=== PATIENT | male | born 1995 | race Two or more races ===

== ENCOUNTER 2022-08-05 08:52 | Emergency (ER) | payer SELFPAY ==
--- NOTE | ~2022-08-05 | XR_ITS ---
EXAMINATION: XR abdomen/kub 1V DATE: 08/05/2022 12:22 INDICATION: Abdominal pain. Bloating. Diarrhea. TECHNIQUE: A supine view of the abdomen on 2 radiographs was obtained. COMPARISON: None. FINDINGS: There are no dilated loops of bowel. There is a moderate amount of stool in the colon. IMPRESSION: 1. Nonobstructive bowel gas pattern. Reviewed, dictated and finalized at location A. [employer]
[2022-08-05 09:10] VITALS: BP 140/89; PULSE 80; RESP 15; TEMP 36.9; O2SAT 100
[2022-08-05 10:51] LABS: Basophils Percent Auto 0.4 % (0.2-1.2); Eosinophils Absolute Auto 0.1 K/mm3 (0-0.3); Eosinophils Percent Auto 1.6 % (0-4.4); Hematocrit 40.4 % (42.0-52.0); Hemoglobin 13.9 g/dL (14.0-18.0); Immature Granulocyte Absolute 0.01 K/mm3 (0.00-0.031); Immature Granulocyte Percent A 0.1 % (0-0.5); Lymphocytes Absolute Auto 2.17 K/mm3 (0.9-3.2); Lymphocytes Percent Auto 28.3 % (18.3-44.2); Mean Corpuscular HGB Conc 34.4 g/dl (32-36); Mean Corpuscular Hemoglobin 27.7 pg (26-34); Mean Corpuscular Volume 80.6 fl (80-100); Mean Platelet Volume 12.4 fl (7.4-10.4); Monocytes Absolute Auto 0.5 K/mm3 (0.1-0.6); Neutrophils Absolute Auto 4.9 K/mm3 (1.3-6.7); Neutrophils Percent Auto 63.6 % (45.5-73.1); Platelet Count Result 201 k/mm3 (150-375); Red Blood Count 5.01 M/mm3 (4.6-6.20); Red Cell Distribution Width 12.4 % (11.5-14.5); White Blood Count 7.7 K/mm3 (4.5-10.0)
[2022-08-05 11:22] LABS: Alanine Aminotransferase 55 U/L (6-50); Alkaline Phosphatase 88 U/L (38-126); Anion Gap 9 mmol/L (8-16); Aspartate Amino Transferase 31 U/L (17-59); Bilirubin,Total 0.6 mg/dL (0.2-1.3); Blood Urea Nitrogen 7 mg/dL (9-20); Calcium 9.4 mg/dL (8.4-10.2); Carbon Dioxide 28 mmol/L (22-30); Chloride 100 mmol/L (98-107); Estimated CRCL calculation 144 ml/min; Estimated Glomerular Filt Rate > 60; Glucose 99 mg/dL (65-110); Lipase 44 U/L (23-300); Potassium 3.2 mmol/L (3.4-5.0); Sodium 137 mmol/L (137-145)
--- NOTE | 2022-08-05 11:59 | ED.GIBLEED ---
HPI - GI Bleed General Chief complaint: GI Bleed Stated complaint: bleeding inside with dark stools Time Seen by Provider: 08/05/22 10:33 History of Present Illness HPI Narrative: Patient is a 27-year-old male who presents ER with concerns for possible intestinal bleeding. Patient reports he began having diarrhea 3 to 4 days ago. He then began taking Pepto-Bismol and his stool turned black. He read online that this could indicate intestinal bleeding. He reports that he has had no diarrhea today but has been passing gas and having cramping. No vomiting. No fevers or chills or sweats. Related Data Allergies Allergy/AdvReac Type Severity Reaction Status Date / Time No Known Allergies Allergy Verified 08/05/22 10:49 Review of Systems Review of Systems: All systems reviewed & are unremarkable except as noted in HPI and below Constitutional: Constitutional: Denies chills, Denies fatigue and Denies fever(s) ENT: Denies nasal congestion and Denies sore throat Gastrointestinal: Gastrointestinal: Reports abdominal pain, Reports bloating, Reports diarrhea, Denies nausea and Denies vomiting Exam Narrative: GENERAL: Well-appearing, well-nourished, and in no acute distress. HEAD: Normocephalic, atraumatic. CHEST: Clear to auscultation. No respiratory distress. HEART: Regular rate and rhythm. Normal peripheral pulses. ABDOMEN: Soft, nontender, nondistended, normal active bowel sounds. EXTREMITIES: Normal range of motion. No edema. SKIN: Warm, dry, no rash. NEURO: Alert and oriented x3. PSYCH: Normal mood and affect. Course Course Emergency Course: Patient resting comfortably. Informed of results. Normal hemoglobin. Feel his dark stool was related to Pepto-Bismol use. No obstruction. Discharge home. Vital Signs Vital signs: Vital Signs Temperature 98.5 F 08/05/22 09:10 Pulse Rate 80 08/05/22 09:10 Respiratory Rate 15 08/05/22 09:10 Blood Pressure 140/89 08/05/22 09:10 Pulse Oximetry 100 08/05/22 09:10 Oxygen Delivery Room Air 08/05/22 09:10 Temperature 98.5 F 08/05/22 09:10 Pulse Rate 80 08/05/22 09:10 Respiratory Rate 15 08/05/22 09:10 Blood Pressure 140/89 08/05/22 09:10 Pulse Oximetry 100 08/05/22 09:10 Oxygen Delivery Room Air 08/05/22 09:10 MDM - GI Bleed Lab Data 08/05/22 10:43 08/05/22 10:43 Labs: Lab Results 08/05/22 08/05/22 08/05/22 Range/Units 10:43 10:43 12:27 WBC 7.7 (4.5-10.0) K/mm3 RBC 5.01 (4.6-6.20) M/mm3 Hgb 13.9 L (14.0-18.0) g/dL Hct 40.4 L (42.0-52.0) % MCV 80.6 (80-100) fl MCH 27.7 (26-34) pg MCHC 34.4 (32-36) g/dl RDW 12.4 (11.5-14.5) % Plt Count 201 (150-375) k/mm3 MPV 12.4 H (7.4-10.4) fl Immature Gran % (Auto) 0.1 (0-0.5) % Neut % (Auto) 63.6 (45.5-73.1) % Lymph % (Auto) 28.3 (18.3-44.2) % [place] % (Auto) 6.0 (2.6-8.5) % Eos % (Auto) 1.6 (0-4.4) % Baso % (Auto) 0.4 (0.2-1.2) % Lymph # (Auto) 2.17 (0.9-3.2) K/mm3 [place] # (Auto) 0.5 (0.1-0.6) K/mm3 Eos # (Auto) 0.1 (0-0.3) K/mm3 Baso # (Auto) 0.0 (0.0-0.1) K/mm3 Abs Immat Gran (auto) 0.01 (0.00-0.031) K/mm3 Absolute Neuts (auto) 4.9 (1.3-6.7) K/mm3 Absolute Nucleated RBC 0.0 (0.0-0.012) K/mm3 Nucleated RBC % 0.0 (0.0-0.2) % Sodium 137 (137-145) mmol/L Potassium 3.2 L (3.4-5.0) mmol/L Chloride 100 (98-107) mmol/L Carbon Dioxide 28 (22-30) mmol/L Anion Gap 9 (8-16) mmol/L BUN 7 L (9-20) mg/dL Creatinine 0.70 (0.7-1.3) mg/dL Estim Creat Clear Calc 144 ml/min Estimated GFR > 60 (59 - ) Glucose 99 (65-110) mg/dL Calcium 9.4 (8.4-10.2) mg/dL Total Bilirubin 0.6 (0.2-1.3) mg/dL AST 31 (17-59) U/L ALT 55 H (6-50) U/L Alkaline Phosphatase 88 (38-126) U/L Total Protein 9.0 H (6.3-8.2) g/dL Albumin 5.0 (3.5-5.1) g/dL Lipase 44 (23-300) U/L Urine Color
[2022-08-05] MEDS: DICYCLOMINE HCL 10 MG CAPSULE 20 MG PO (12:16)
[2022-08-05] MEDS: SIMETHICONE 125 MG CHEW TAB PO (12:16)
[2022-08-05 12:36] LABS: Appearance Urine Clear (Clear); Bilirubin Urine Negative (Negative); Blood Urine Negative (Negative); Color Urine Yellow (Yellow); Glucose Urine UA Negative (Negative); Ketones Urine Negative (Negative); Leukocyte Esterase Ur Negative LEU/UL (Negative); Nitrate Urine Negative (Negative); Protein Urine Negative (Negative); Specific Grav Ur 1.015 (1.001-1.035); Urobilinogen Urine 0.2 mg/dL (<2.0)
[2022-08-05 12:52] LABS: Add Urine Microscopic? NO
[2022-08-05 14:15] VITALS: BP 124/68; PULSE 80; RESP 16; O2SAT 98
== END 2022-08-05 14:25 | disposition home or self-care (01) ==
PROVIDERS: Emergency Provider Emergency Medicine
DX: K52.9 Noninfective gastroenteritis and colitis, unspecified (principal)
CPT/HCPCS: 36415; 74018; 80053; 81003; 83690; 85025; 99283; A9270